=== PATIENT | female | born 1955 | race Caucasian/White ===

== ENCOUNTER 2017-08-18 11:36 | Inpatient (IN) | payer OTHER ==
[~2017-08-18] VITALS: Ht 162.6 cm; Wt 99.2 kg
[2017-08-18] MEDS ORDERED: NITROGLYCERIN SINGLE TAB 0.4 MG SL ONE ×3 (12:13→13:06)
[2017-08-18] MEDS ORDERED: ASPIRIN 81 MG TABLET CHEW ONE (12:14)
[2017-08-18] MEDS: NITROGLYCERIN SINGLE TAB 0.4 MG SL PRN ×3 (12:14→13:07)
[2017-08-18 12:22] LABS: BASOPHILS % (AUTO) 0 % (0-1); EOSINOPHILS # (AUTO) 0.04 x10^3/uL (0-0.4); EOSINOPHILS % (AUTO) 1 % (1-7); LYMPHOCYTES # (AUTO) 1.22 x10^3/uL (1-3.4); LYMPHOCYTES % (AUTO) 16 % (22-44); MD NO; MEAN CORPUSCULAR HEMOGLOBIN 28.3 pg (27.0-34.8); MEAN CORPUSCULAR HGB CONC 32.9 g/dL (32.4-35.8); MEAN CORPUSCULAR VOLUME 86.1 fL (80-100); MONOCYTES # (AUTO) 0.27 x10^3/uL (0.2-0.8); MONOCYTES % (AUTO) 4 % (2-9); NEUTROPHILS # (AUTO) 6.28 x10^3/uL (1.8-6.8); NEUTROPHILS % (AUTO) 80 % (42-75); PLATELET COUNT 228 x10^3/uL (130-400)
[2017-08-18 12:30] LABS: INTERNATIONAL NORMALIZED RATIO 0.97 (0.93-1.1); PROTHROMBIN TIME 10.1 Seconds (9.6-11.5)
[2017-08-18] MEDS ORDERED: PLEASE ENTER ALLERGIES MC SCH (12:30)
[2017-08-18] MEDS ORDERED: ASPIRIN 81 MG TABLET CHEW PO ONE (12:30)
[2017-08-18] MEDS ORDERED: SODIUM CHLORIDE FLUSH 10ML SYR IVF ONE (12:30)
[2017-08-18 12:33] LABS: ALBUMIN 3.7 g/dL (3.4-5.0); ANION GAP 7 mmol/L (5-15); CALCIUM 9.2 mg/dL (8.5-10.1); CHLORIDE 102 mmol/L (98-107); CREATININE 1.15 mg/dL (0.55-1.02)
[2017-08-18] MEDS ORDERED: VALS160T3 PO (14:07)
[2017-08-18] MEDS ORDERED: DULA0.75 SQ (14:09)
[2017-08-18] MEDS ORDERED: IBUP200T64 PO (14:10)
[2017-08-18] MEDS ORDERED: DAPA10TA PO (14:10)
[2017-08-18] MEDS ORDERED: MULT-6 PO (14:11)
[2017-08-18] MEDS ORDERED: CHOL500050 PO (14:12)
[2017-08-18] MEDS ORDERED: ENOXAPARIN 40 MG/0.4 ML SQ SCH (15:30)
[2017-08-18] MEDS ORDERED: ONDANSETRON 2MG/ML, 2ML IVPush PRN (15:30)
[2017-08-18] MEDS ORDERED: hydrALAzine 20 MG/ML, 1ML IVPush PRN (15:30)
[2017-08-18] MEDS ORDERED: ACETAMINOPHEN 325 MG TABLET PO PRN (15:30)
[2017-08-18] MEDS ORDERED: morphine SULFATE 10 MG/ML, 1ML IVPush PRN (15:30)
[2017-08-18] MEDS ORDERED: OXYcodone IR 5MG TABLET PO PRN (15:30)
[2017-08-18] MEDS: INSULIN LISPRO 100 UNITS/ML, PEN SQ-INSULIN SCH ×2 (16:30→20:22)
[2017-08-18 16:36] VITALS: BP 167/91
[2017-08-18 16:54] LABS: HEMOGLOBIN A1C 13.2 % (4.2-6.3)
[2017-08-18] MEDS: METOPROLOL TARTRATE 25 MG TABLET PO SCH (17:19)
[2017-08-18 20:09] VITALS: BP 130/79
[2017-08-18] MEDS ORDERED: HEPARIN 25,000 UNITS/500ML PMX 500 ML IV PRN (22:30)
[2017-08-18] MEDS ORDERED: HEPARIN 5,000 UNITS/ML, 1ML IV ONE (22:30)
[2017-08-18] MEDS ORDERED: HEPARIN 5,000 UNITS/ML, 1ML IV PRN (22:30)
[2017-08-19 02:30] VITALS: BP 143/84
[2017-08-19] MEDS: METOPROLOL TARTRATE 25 MG TABLET PO SCH ×3 (05:21→21:39)
[2017-08-19 05:53] LABS: BASOPHILS # (AUTO) 0.03 x10^3/uL (0-0.1); BASOPHILS % (AUTO) 0 % (0-1); EOSINOPHILS # (AUTO) 0.09 x10^3/uL (0-0.4); EOSINOPHILS % (AUTO) 1 % (1-7); LYMPHOCYTES % (AUTO) 21 % (22-44); MD NO; MEAN CORPUSCULAR HEMOGLOBIN 28.8 pg (27.0-34.8); MEAN CORPUSCULAR HGB CONC 33.3 g/dL (32.4-35.8); MEAN CORPUSCULAR VOLUME 86.7 fL (80-100); MEAN PLATELET VOLUME 8.9 fL (7.4-10.4); MONOCYTES # (AUTO) 0.38 x10^3/uL (0.2-0.8); MONOCYTES % (AUTO) 4 % (2-9); NEUTROPHILS # (AUTO) 6.56 x10^3/uL (1.8-6.8); NEUTROPHILS % (AUTO) 73 % (42-75); PLATELET COUNT 216 x10^3/uL (130-400); RED BLOOD COUNT 5.18 x10^6/uL (3.82-5.3); RED CELL DISTRIBUTION WIDTH 14.6 % (9.6-15.2)
[2017-08-19] MEDS ORDERED: ASPIRIN 325 MG TABLET PO SCH (06:00)
[2017-08-19 06:05] LABS: ANION GAP 11 mmol/L (5-15); CALCIUM 8.4 mg/dL (8.5-10.1); CHLORIDE 104 mmol/L (98-107); CHOLESTEROL, TOTAL 302 mg/dL (140-239); CREATININE 0.83 mg/dL (0.55-1.02)
[2017-08-19 06:07] LABS: CHOL/HDL RATIO 6.7; HDL CHOL % 15 % (28-40); HDL CHOLESTEROL (DIRECT) 45 mg/dL (40-60); LDL CHOLESTEROL,CALCULATED 209 mg/dL (54-169); LDL/HDL RATIO 4.6 (0.5-3.0); TRIGLYCERIDES 238 mg/dL (50-200); VLDL CHOLESTEROL 48 mg/dL (0-25)
[2017-08-19] MEDS: INSULIN LISPRO 100 UNITS/ML, PEN SQ-INSULIN SCH ×5 (07:00→21:35)
[2017-08-19 07:12] VITALS: BP 145/90
[2017-08-19] MEDS ORDERED: MAGNESIUM SULFATE PMX 2GM/50ML 50 ML IV ONE (10:00)
[2017-08-19] MEDS: VALSARTAN 160 MG TABLET PO SCH (10:43)
[2017-08-19] MEDS ORDERED: TICAGRELOR 90 MG TABLET ONE (11:43)
[2017-08-19] MEDS ORDERED: FENTANYL PF 100 MCG/2ML ONE (11:43)
[2017-08-19] MEDS ORDERED: BIVALIRUDIN 250 MG ONE (11:44)
[2017-08-19] MEDS ORDERED: MIDAZOLAM 1 MG/ML, 2ML ONE (11:44)
[2017-08-19] MEDS ORDERED: LIDOCAINE 2%, 20ML ONE (11:44)
[2017-08-19] MEDS ORDERED: HEPARIN 1,000 UNITS/ML, 10ML ONE (11:44)
[2017-08-19] MEDS ORDERED: NITROGLYCERIN 5 MG/ML, 10ML ONE (11:44)
[2017-08-19] MEDS ORDERED: VERAPAMIL 2.5 MG/ML, 2ML ONE (11:44)
[2017-08-19] MEDS ORDERED: CLOPIDOGREL 300 MG TABLET ONE (12:54)
[2017-08-19 15:20] VITALS: BP 148/91
[2017-08-19 18:56] VITALS: BP 119/82
[2017-08-19] MEDS ORDERED: ATORVASTATIN 80 MG TABLET PO SCH (21:00)
[2017-08-19] MEDS ORDERED: INSULIN GLARGINE 100 UNITS/ML, PEN SQ-INSULIN SCH (21:00)
[2017-08-19] MEDS ORDERED: METOPROLOL SUCCINATE 25 MG TAB.ER.24H ONE (21:10)
[2017-08-19] MEDS ORDERED: INSULIN DETEMIR 100 UNITS/ML, PEN SQ-INSULIN SCH (21:33)
[2017-08-19] MEDS ORDERED: HEPARIN 25,000 UNITS/500ML PMX 500 ML IV PRN (22:30)
[2017-08-20 01:00] VITALS: BP 113/76
[2017-08-20 01:26] LABS: BASOPHILS # (AUTO) 0.02 x10^3/uL (0-0.1); BASOPHILS % (AUTO) 0 % (0-1); EOSINOPHILS % (AUTO) 1 % (1-7); LYMPHOCYTES % (AUTO) 21 % (22-44); MD NO; MEAN CORPUSCULAR HEMOGLOBIN 28.5 pg (27.0-34.8); MEAN CORPUSCULAR HGB CONC 33.3 g/dL (32.4-35.8); MEAN CORPUSCULAR VOLUME 85.6 fL (80-100); MEAN PLATELET VOLUME 8.8 fL (7.4-10.4); MONOCYTES # (AUTO) 0.53 x10^3/uL (0.2-0.8); MONOCYTES % (AUTO) 7 % (2-9); NEUTROPHILS # (AUTO) 5.64 x10^3/uL (1.8-6.8); NEUTROPHILS % (AUTO) 71 % (42-75); PLATELET COUNT 235 x10^3/uL (130-400); RED BLOOD COUNT 5.09 x10^6/uL (3.82-5.3); RED CELL DISTRIBUTION WIDTH 14.6 % (9.6-15.2)
[2017-08-20 01:39] LABS: ANION GAP 9 mmol/L (5-15); CALCIUM 8.3 mg/dL (8.5-10.1); CHLORIDE 106 mmol/L (98-107); CREATININE 0.79 mg/dL (0.55-1.02)
[2017-08-20] MEDS: METOPROLOL TARTRATE 25 MG TABLET PO SCH (05:32)
[2017-08-20] MEDS ORDERED: ASPIRIN 81 MG TABLET EC PO SCH (06:00)
[2017-08-20 06:29] VITALS: BP 107/78
[2017-08-20] MEDS ORDERED: EZETIMIBE 10 MG TABLET PO SCH (09:00)
[2017-08-20] MEDS ORDERED: CLOPIDOGREL 75 MG TABLET PO SCH (09:00)
[2017-08-20] MEDS: VALSARTAN 160 MG TABLET PO SCH (09:06)
[2017-08-20] MEDS: INSULIN LISPRO 100 UNITS/ML, PEN SQ-INSULIN SCH ×2 (09:06→11:22)
[2017-08-20] MEDS ORDERED: EZET10TA18 PO (10:53)
[2017-08-20] MEDS ORDERED: CLOP75TA PO (10:53)
[2017-08-20] MEDS ORDERED: ASPI-621 PO (10:53)
[2017-08-20] MEDS ORDERED: GLIP5TAB10 PO (10:53)
[2017-08-20] MEDS ORDERED: ATOR-2 PO (10:53)
[2017-08-20] MEDS ORDERED: METO25TA35 PO (10:53)
[2017-08-20] MEDS ORDERED: INSULIN DETEMIR 100 UNITS/ML, PEN SQ-INSULIN SCH (21:00)
== END 2017-08-20 12:49 | disposition home or self-care (01) | DRG 251 ==
LOC: ED 13:18 → EDIP 14:01 → 5SO 14:57 → DCLOUNGE 08-20 12:21
PROVIDERS: ADMIT Internal Medicine; ATTEND Internal Medicine
PROC: 4A023N7 Measurement of Cardiac Sampling and Pressure, Left Heart, Percutaneous Approach (ICD-10-PCS; principal; 2017-08-19)
PROC: 02713ZZ Dilation of Coronary Artery, Two Arteries, Percutaneous Approach (ICD-10-PCS; 2017-08-19)
PROC: B2111ZZ Fluoroscopy of Multiple Coronary Arteries using Low Osmolar Contrast (ICD-10-PCS; 2017-08-19)
DX: I21.4 Non-ST elevation (NSTEMI) myocardial infarction (principal); E66.01 Morbid (severe) obesity due to excess calories; E11.9 Type 2 diabetes mellitus without complications; E78.00 Pure hypercholesterolemia, unspecified; E78.5 Hyperlipidemia, unspecified; I10 Essential (primary) hypertension; I25.119 Atherosclerotic heart disease of native coronary artery with unspecified angina pectoris; Z79.82 Long term (current) use of aspirin; Z68.37 Body mass index [BMI] 37.0-37.9, adult; Z83.3 Family history of diabetes mellitus; Z87.891 Personal history of nicotine dependence; Z79.84 Long term (current) use of oral hypoglycemic drugs
CPT/HCPCS: 36415; 71045; 80048; 80061; 82040; 82962; 83036; 83735; 84100; 84484; 85025; 85520; 85610; 85730; 92920; 93005; 93306; 93458; 99156; 99157; 99285; C1769; C1894; J0583; J1644; J1650; J2250; J3010; J3490; 92928; C1725; C1887; J1815; J3475; Q9967